=== PATIENT | male | born 1975 | race Two or more races ===

== ENCOUNTER 2025-01-18 11:04 | Emergency (ER) | payer OTHER, SELFPAY ==
[2025-01-18 11:05] VITALS: BMI 31.9
[2025-01-18 11:24] VITALS: BP 144/82; PULSE 79; RESP 18; TEMP 36.6; O2SAT 98
--- NOTE | 2025-01-18 11:41 | PD.EDMALE ---
ED Male Genitalurinary RME/HPI General Chief complaint: Urogenital-Male Stated complaint: UNABLE TO URINATE Time Seen by Provider: 01/18/25 11:29 Source: patient Arrival date/time: 01/18/25 11:04 49-year-old male with no known medical history presents to the emergency room with a chief complaint of difficulty urinating. Patient states he has been having difficulty emptying his bladder and has dribbling with his urine. Mode of arrival: ambulatory Limitations: no limitations Related Data Previous Rx's ?Medication ?Instructions ?Recorded nitrofurantoin 100 mg PO Q12H 5 days #10 caps 01/18/25 monohydrate/macrocrystals 100 mg capsule (Macrobid) tamsulosin 0.4 mg capsule (Flomax) 0.4 mg PO QDAY #30 caps 01/18/25 Allergies Allergy/AdvReac Type Severity Reaction Status Date / Time No Known Allergies Allergy Verified 01/18/25 11:07 Review of Systems Review of Systems Systems Reviewed: All systems reviewed, normal except as documented Constitutional Constitutional: Reports system reviewed and no additional complaints, except as documented, Denies fatigue, Denies fever(s), Denies headache(s) and Denies weakness Eyes Eyes: Reports system reviewed and no additional complaints, except as documented, Denies blurry vision and Denies change in vision ENT Ears, Nose, Mouth, and Throat: Reports system reviewed and no additional complaints, except as documented, Denies otalgia, Denies headache(s), Denies nasal congestion, Denies throat swelling and Denies vertigo Cardiovascular Cardiovascular: Reports system reviewed and no additional complaints, except as documented, Denies chest pain, Denies dyspnea and Denies dyspnea on exertion Respiratory Respiratory: Reports system reviewed and no additional complaints, except as documented, Denies chest congestion, Denies cough, Denies dyspnea, Denies dyspnea on exertion and Denies wheezing Gastrointestinal Gastrointestinal: Reports system reviewed and no additional complaints, except as documented, Denies abdominal pain, Denies cramping, Denies nausea and Denies vomiting Genitourinary Genitourinary: Reports system reviewed and no additional complaints, except as documented, Denies dysuria, Denies hematuria, Reports urinary hesitancy, Reports urinary incontinence and Reports urinary urgency Musculoskeletal Musculoskeletal: Reports system reviewed and no additional complaints, except as documented and Denies back pain Integumentary/Breasts Skin/Breast: Reports system reviewed and no additional complaints, except as documented and Denies wounds Neurologic Neurologic: Reports system reviewed and no additional complaints, except as documented, Denies confusion, Denies headache(s), Denies lack of coordination, Denies vertigo and Denies weakness Psychiatric Psychiatric: Reports system reviewed and no additional complaints, except as documented, Denies anxiety, Denies confusion, Denies depression, Denies paranoia, Denies suicidal ideation and Denies tactile hallucinations Endocrine Endocrine: Reports system reviewed and no additional complaints, except as documented and Denies fatigue Hematologic/Lymphatic Hematologic/Lymphatic: Reports system reviewed and no additional complaints, except as documented and Denies lymphadenopathy Allergic/Immunologic Allergic/Immunologic: Reports system reviewed and no additional complaints, except as documented, Denies throat swelling, Denies urticaria and Denies wheezing Past Medical History Past Medical History CARDIAC: Negative Cardiac Disorders RESPIRATORY: Negative Asthma GENITOURINARY: Negative Renal Disease ENDOCRINE: Positive Diabetes Mellitus Type 2 HEMATOLOGIC: Negative Sickle Cell Disease Social History SMOKING STATUS: Never smoker ED Exam General Limitations: Present no limitations General appearance: Present alert and in no apparent distress Head Head exam: Present atraumatic Eye Eye exam: Present normal appearance, PERRL and EOMI ENT ENT exam: Present normal exam, normal oropharynx and mucous membranes moist Neck Neck exam: Present normal inspection, full ROM and trachea midline Chest Chest inspection: Present normal inspection and symmetric chest wall rise Respiratory Respiratory exam: Present normal lung sounds bilaterally Cardiovascular Cardiovascular exam: Present regular rate, normal rhythm and normal heart sounds Abdominal Exam Abdominal exam: Present soft and normal bowel sounds; Absent distention, tenderness, guarding or rebound Extremities Exam Extremities exam: Present normal inspection and full ROM Back Exam Back exam: Present normal inspection and full ROM Neurological Exam Neurological exam: Present alert, oriented X3 and CN II-XII intact Psychiatric Psychiatric exam: Present normal affect and normal mood Skin Skin exam: Present warm, dry, intact and normal color Course Quality Measures none Orders Category Date Time Status UA, C/S IF [Urinalysis, C/S if Indicated] Stat Lab 01/18/25 11:52 Completed Urine Culture Stat Lab 01/18/25 11:52 Received Tamsulosin HCl [Flomax] Med 01/18/25 11:43 Discontinued 0.4 mg PO X1 ONE cefTRIAXone [Rocephin] 1,000 mg Med 01/18/25 13:11 Discontinued Lidocaine 1% 20 ml [Xylocaine 1% 20 ML] 2.1 ml IM X1 Vital Signs Vital signs: Vital Signs Temperature 97.8 F 01/18/25 11:24 Pulse Rate 79 01/18/25 11:24 Respiratory Rate 18 01/18/25 11:24 Blood Pressure 144/82 H 01/18/25 11:24 Pulse Oximetry (%) 98 01/18/25 11:24 Oxygen Delivery Method Room Air 01/18/25 11:24 O2 saturation 98% within normal limits Urogenital - Male MDM Narrative MDM Narrative:: 49-year-old male with no known medical history presents to the emergency room with a chief complaint of difficulty urinating. Patient states he has been having difficulty emptying his bladder and has dribbling with his urine. Patient is hemodynamically stable. Patient states his symptoms started this morning and have actually resolved. Patient states he was able to void while in the lobby. The patient does state that for the last month he has had difficulty fully emptying out his bladder. Patient states he also feels like he is dribbling when he urinates and not having a full stream. Patient was educated that he will need a urologist to assess his enlarged prostate. At this point the patient states he has able to void and he has no more signs or symptoms. Urinalysis was completed and was negative for any urinary tract infection. Patient was discharged and educated to follow-up with primary care provider in the next 24 to 48 hours and return to the emergency room for any evidence of worsening signs or symptoms Patient data External records reviewed:: [facility] previous records Clinical information provided by:: patient Social determinants that could affect healthcare access:: none Patient has the following chronic illnesses:: No chronic illness How is presenting disease/condition affected by chronic disease/condition?: no chronic disease Evaluation data The following diagnostics were reviewed and interpreted by me:: lab results and radiology exam(s) Lab and/or radiology exams considered but not ordered:: Lab results and radiology exams considered and ordered Interpretation Summary: N/A Medications / Prescriptions Medications or Prescriptions considered but not ordered:: No medication given Medication administrations:: Medication Administration History Discontinued Medications Ceftriaxone Sodium 1,000 mg/ (Lidocaine HCl 2.1 ml) 0 mg IM X1 ONE Stop: 01/18/25 13:12 Tamsulosin HCl (Tamsulosin Hcl 0.4 Mg Capsule) 0.4 mg PO X1 ONE Stop: 01/18/25 11:44 Last Admin: 01/18/25 12:01 Dose: 0.4 mg Documented By: KM Medication given Consultations Consultation(s) initiated? (list below): No Diagnosis Urogenital Male Differential Diagnosis: urinary tract infection, epididymitis, prostatitis and acute retention of urine Most likely diagnosis given after review of the tests above:: Acute retention of urine Admission Indicated Admission indicated?: not indicated Admission Request Was there a request for admission?: No Disposition Plan Disposition Plan: Discharge Discharge Attestation Discharge Attestation: The patient and all family members were given an opportunity to ask questions and understood the discharge instructions. Discharge instructions specifically effects, indications for sooner follow up or return to the emergency department, and the expected course of current diagnosis. Patient condition: Stable Discharge Plan Plan Patient Disposition: HOME (Self Care) Discharge Disposition comment: Stable Prescriptions/Referrals Prescriptions/Med Rec: New nitrofurantoin monohyd/m-cryst [Macrobid] 100 mg capsule 100 mg PO Q12H 5 Days Qty: 10 0RF Rx Instructions: must administer with a meal/food tamsulosin [Flomax] 0.4 mg capsule 0.4 mg PO QDAY Qty: 30 0RF Referrals: Alessandro Gamez MD [Primary Care Provider] - In 1 week Problem List Clinical Impression: Urinary tract infection, Acute retention of urine Patient/Caregiver Discharge Instructions Education Materials: ED Urinary Retention, Male, ED Bladder Infection, Male (Adult) Additional Instructions: Please follow-up with your primary care provider in the next 24 to 48 hours. At this time your urinary retention has resolved. If your signs and symptoms return please return to the emergency room. You will need a referral to a urologist to assess your prostate as this is the most probable cause of your symptoms Your urinalysis showed a urinary tract infection. Antibiotics are sent to your pharmacy please pick them up and take them as indicated For any evidence of worsening signs or symptoms return to the emergency room immediately Print Language: [place] Stand Alone Forms: Velma Award Info., Patient Portal Info Letter PA/OSVALDO Supervising Physician NAYLA/OSVALDO Supervising Physician: Dr Gaytan
[2025-01-18 11:58] LABS: Collection Type, Urine Clean Catch
[2025-01-18] MEDS: TAMSULOSIN HCL 0.4 MG CAPSULE PO (12:01)
[2025-01-18 12:08] LABS: Bacteria,Urine Rare; Bilirubin,Urine Negative (Negative); Blood,Urine Negative (Negative); Clarity,Urine Clear (Clear/Hazy); Color,Urine Lt-Yellow (Lt Yel-Yel); Glucose, Urine 3+ (Negative); Ketones,Urine Negative (Negative); Leukocyte Esterase,Urine Positive (Negative); Nitrite,Urine Positive (Negative); Protein,Urine Negative (Neg - Trace); RBC,Urine 1 /hpf (0-3); Squamous Epithelial Cell,Urine < 1 /hpf (0-5); Urobilinogen,Urine Negative mg/dL (0.0-1.0); WBC,Urine 33 /hpf (0-5)
[2025-01-18 12:50] LABS: Culture Indicated,Urine Yes
[2025-01-18 13:18] VITALS: BP 144/74; PULSE 70; RESP 16; TEMP 36.4; O2SAT 97
[2025-01-18] MEDS: cefTRIAXone 1,000 MG, LIDOCAINE 1% 20 ML 2.1 ML IM (13:23)
== END 2025-01-18 13:30 | disposition home or self-care (01) ==
PROVIDERS: Nurse Practitioner Family; Emergency Provider Emergency Medicine; PCP Family Medicine
DX: N39.0 Urinary tract infection, site not specified (principal); R33.9 Retention of urine, unspecified
CPT/HCPCS: 81001; 87077; 87086; 87186; 96372; 99283; J0696; J3490; A9270